=== PATIENT | male | born 2000 | race Caucasian/White ===

== ENCOUNTER 2022-09-01 01:37 | Inpatient (IN) | payer SELFPAY ==
[2022-09-01] VITALS (110 sets, daily range): BP systolic 114–172; BP diastolic 63–100; PULSE 0–116; RESP 0–28; TEMP 35.9–37.1; O2SAT 87–100; BMI 21.7
--- NOTE | 2022-09-01 01:41 | ECG_ITS ---
[facility] Test Date: 2022-09-01 Pat Name: Mart Lees Department: Room: Gender: Male Law Reporter: : 2000 Requested By: Kel Marquez Order Number: [id number] Luz Elena MD: Tip Valiente M.D. Measurements Intervals [place] Rate: 85 P: 78 TX: 152 QRS: 88 QRSD: 93 T: 48 QT: 349 QTc: 416 Interpretive Statements SINUS RHYTHM Compared to ECG 01/11/2017 18:08:34 Sinus tachycardia no longer present Electronically Signed On 09-01-2022 17:35:12 CDT by Tip Valiente M.D. [id number]
[2022-09-01 01:48] LABS: Basophils % 0.2 %; Eosinophils # 0.1 10^3/uL (0.0-0.8); Eosinophils % 0.8 %; Hematocrit 41.1 % (42.0-52.0); Hemoglobin 13.6 g/dL (11.7-16.6); Lymphocytes % 21.7 %; Mean Corpuscular HGB Conc 33.1 g/dL (30.0-36.0); Mean Corpuscular Hemoglobin 30.7 pg (28.0-34.0); Mean Corpuscular Volume 92.8 fl (80-94); Mean Platelet Volume 9.9 fL (7.4-10.4); Monocytes # 0.9 10^3/uL (0.2-0.9); Monocytes % 9.8 %; Neutrophils # 6.08 10^3/uL (1.8-7.7); Neutrophils % 67.3 %; Nucleated Red Blood Cells % 0 %; Platelet Count 309 10^3/cmm (130-400); Red Blood Count 4.43 10^6/uL (4.1-5.3); Red Cell Distribution Width 12.4 % (12.1-15.1)
--- NOTE | 2022-09-01 02:01 | ED_ITS ---
HPI - Overdose General: Chief Complaint: Overdose Stated Complaint: OD Time Seen by Provider: 09/01/22 01:38 Source: patient and EMS Mode of arrival: EMS Limitations: altered mental status History of Present Illness: 22-year-old male brought in by EMS tonight. Patient was at his family's house and supposedly took Xanax. Per EMS the family did state to but unsure how many he actually took. Patient here is clearly under the influence he is sedated he does not awaken answer some of my questions but is not answering them all appropriately no known suicide attempt he denies suicidality currently unknown if he has alcohol on board or other drugs Review of Systems General: Reports: ROS unobtainable due to mental status PFS ED PFSH: Medical History (Updated 09/01/22 @ 05:27 by Sarmad Chavez MD) No pertinent past medical history Surgical History (Updated 09/01/22 @ 05:27 by Sarmad Chavez MD) No pertinent past surgical history Social History (Updated 09/01/22 @ 05:28 by Sarmad Chavez MD) Smoking and tobacco status: current some day smoker Substance/Drug Use: never Caregiver/support person: Yes Household members: family Housing: House Physical Exam Const: COMMON NORMALS: negative for patient oriented x3 HENMT: COMMON NORMALS: normocephalic and atraumatic HEAD & SCALP: normocephalic and atraumatic Eye: COMMON NORMALS: Equal, round and reactive pupils present and EOMs intact bilaterally PUPIL: Yes Equal, round and reactive pupils present Neck/C-Spine: COMMON NORMALS: full ROM and supple Chest: COMMONS NORMALS: normal inspection of the chest and normal palpation of entire chest wall Resp: COMMON NORMALS: normal respiratory effort, No retractions, No use of accessory muscles and clear to auscultation bilaterally AUSCULTATION: clear to auscultation bilaterally Cardio: COMMON NORMALS: regular rate, regular rhythm and No murmurs present (Cardio) RATE: regular rate RHYTHM: regular rhythm GI: COMMON NORMALS: Normal to inspection, nondistended, normoactive bowel sounds present, Soft to palpation, non-tender and no masses PALPATION: Yes Soft to palpation Extremity: COMMON NORMALS: normal to inspection and full ROM Neuro: COMMON NORMALS: moves all extremities and no focal motor deficits; negative for patient oriented x3 Psych: COMMON NORMALS: mental status grossly normal and cooperative Skin: COMMON NORMALS: no rashes or lesions noted and no wounds GENERAL SKIN EXAM: no rashes or lesions noted Course Vital Signs: Vital signs: Vital Signs Temperature 98.8 F 09/01/22 01:40 Pulse Rate 66 09/01/22 05:24 Respiratory Rate 16 09/01/22 05:24 Blood Pressure 142/100 09/01/22 05:24 Pulse Oximetry 97 09/01/22 02:41 Oxygen Delivery Me thod Room Air 09/01/22 01:40 MDM - Overdose Medical Decision Making Patient presents here with a Xanax overdose history has been difficult from him as he is sedated from his Xanax per EMS family believes it was not intentional. I did observe him here for 4 hours he is still very somnolent difficult to arouse will admit to the ICU he has been protecting his airways vitals are normal. Medical Records I reviewed the patient's medical records. Lab Data I reviewed the patient's lab results. 09/01/22 01:42 09/01/22 01:42 Laboratory Results WBC 9.0 10^3/uL (4.0-10.0) 09/01/22 01:42 RBC 4.43 10^6/uL (4.1-5.3) 09/01/22 01:42 Hgb 13.6 g/dL (11.7-16.6) 09/01/22 01:42 Hct 41.1 % (42.0-52.0) L 09/01/22 01:42 MCV 92.8 fl (80-94) 09/01/22 01:42 MCH 30.7 pg (28.0-34.0) 09/01/22 01:42 MCHC 33.1 g/dL (30.0-36.0) 09/01/22 01:42 RDW 12.4 % (12.1-15.1) 09/01/22 01:42 Plt Count 309 10^3/cmm (130-400) 09/01/22 01:42 MPV 9.9 fL (7.4-10.4) 09/01/22 01:42 Neut % (Auto) 67.3 % 09/01/22 01:42 Lymph % (Auto) 21.7 % 09/01/22 01:42 [place] % (Auto) 9.8 % 09/01/22 01:42 Eos % (Auto) 0.8 % 09/01/22 01:42 Baso % (Auto) 0.2 % 09/01/22 01:42 Neut # (Auto) 6.08 10^3/uL (1.8-7.7) 09/01/22 01:42 Lymph # (Auto) 2.0 10^3/uL (0.8-4.8) 09/01/22 01:42 [place] # (Auto) 0.9 10^3/uL (0.2-0.9) 09/01/22 01:42 Eos # (Auto) 0.1 10^3/uL (0.0-0.8) 09/01/22 01:42 Baso # (Auto) 0.0 10^3/uL (0.0-0.1) 09/01/22 01:42 Nucleated RBC % (auto) 0 % 09/01/22 01:42 Nucleated RBCs # 0.0 /100WBC 09/01/22 01:42 Sodium 141 mmol/L (136-145) 09/01/22 01:42 Potassium 3.8 mmol/L (3.5-5.1) 09/01/22 01:42 Chloride 103 mmol/L (98-107) 09/01/22 01:42 Carbon Dioxide 25 mmol/L (22-29) 09/01/22 01:42 Anion Gap 16.8 (5-19) 09/01/22 01:42 BUN 10 mg/dL (6-20) 09/01/22 01:42 Creatinine 0.7 mg/dL (0.7-1.2) 09/01/22 01:42 GFR Calculation 141.0 mL/min (90-130) H 09/01/22 01:42 Glucose 106 mg/dL (65-115) 09/01/22 01:42 Calculated Osmolality 291 mOsm/kg (285-295) 09/01/22 01:42 Calcium 9.6 mg/dL (8.5-10.5) 09/01/22 01:42 Total Bilirubin 0.2 mg/dL (0.15-1.2) 09/01/22 01:42 AST 19 U/L (0-40) 09/01/22 01:42 ALT 23 U/L (0-41) 09/01/22 01:42 Alkaline Phosphatase 89 U/L (40-130) 09/01/22 01:42 Total Protein 7.1 g/dL (6.6-8.7) 09/01/22 01:42 Albumin 4.4 g/dL (3.5-5.2) 09/01/22 01:42 Globulin 2.7 g/dL (1.3-4.6) 09/01/22 01:42 Salicylates < 0.3 mg/dL (3-10) L 09/01/22 01:42 Urine Opiates Screen Negative ng/mL (Negative) 09/01/22 04:00 Acetaminophen < 5.0 ug/mL (10-30) L 09/01/22 01:42 Ur Barbiturates Screen Negative ng/mL (Negative) 09/01/22 04:00 Ur Phencyclidine Scrn Negative ng/mL (Negative) 09/01/22 04:00 Ur Amphetamines Screen Negative ng/mL (Negative) 09/01/22 04:00 U Benzodiazepines Scrn Positive ng/mL (Negative) H 09/01/22 04:00 Urine Cocaine Screen Negative ng/mL (Negative) 09/01/22 04:00 U Marijuana (THC) Screen Positive ng/mL (Negative) H 09/01/22 04:00 Ethyl Alcohol < 10 mg/dL (0-10) 09/01/22 01:42 EKG Data EKG 1: I personally reviewed and interpreted this EKG as follows: EKG interpretation date: 09/01/22 EKG interpretation time: 01:49 Interpretation: nsr hr [address] or t wave abnormalities qrs 93 qtc 391 Critical Care Time Critical Care Time: Critical Care Time: Yes Total Critical Care Time: 40 Attestation: The high probability of a clinically significant, sudden or life threatening deterioration of the patient's overdose system(s) required my full and direct attention, intervention and personal management. The critical care time is as shown. This time is in addition to time spent performing any reported procedures but includes the following: [x] Data and vital sign review and interpretation [x] Patient assessment, examination and intervention [x] Documentation [x] Medication orders and management Discharge Plan Discharge Patient Disposition: Admitted As Inpatient Clinical Impression: Drug overdose Condition: Stable Coding Level of Care Code ED Senior C Developer for Vee Pleitez
[2022-09-01 02:03] LABS: Alanine Aminotransferase 23 U/L (0-41); Albumin Level 4.4 g/dL (3.5-5.2); Alkaline Phosphatase 89 U/L (40-130); Anion Gap 16.8 (5-19); Aspartate Amino Transferase 19 U/L (0-40); Blood Urea Nitrogen 10 mg/dL (6-20); Calcium 9.6 mg/dL (8.5-10.5); Carbon Dioxide 25 mmol/L (22-29); Chloride 103 mmol/L (98-107); Globulin 2.7 g/dL (1.3-4.6); Glucose 106 mg/dL (65-115); Osmolality Calculated 291 mOsm/kg (285-295); Potassium 3.8 mmol/L (3.5-5.1); Sodium 141 mmol/L (136-145); Total Bilirubin 0.2 mg/dL (0.15-1.2); Total Protein 7.1 g/dL (6.6-8.7)
[2022-09-01 02:17] LABS: Acetaminophen < 5.0 ug/mL (10-30); Alcohol Level < 10 mg/dL (0-10); Salicylate < 0.3 mg/dL (3-10)
[2022-09-01 04:15] LABS: Amphetamines Screen Urine Negative (Negative); Barbiturates Screen Urine Negative (Negative); Benzodiazepines Screen Urine Positive (Negative); Cocaine Screen Urine Negative (Negative); Opiate Screen Urine Negative (Negative); PCP Screen Urine Negative (Negative); THC Screen Urine Positive (Negative)
--- NOTE | 2022-09-01 04:29 | PC.NURSE ---
RN into room to walk pt. Pt is unable to stand without falling backwards. RN informed MD. RN will walk pt again later when more alert. Pt resting in bed. Will continue to monitor.
--- NOTE | 2022-09-01 05:19 | P.HP_ITS ---
Providers/Chief Complaint Chief Complaint: OD History of Present Illness Mart Lees is a 22 year old male with no known past medical history brought into the ER via EMS today when family called as patient was unresponsive. As per family patient Xanax but not sure how many. Patient does not have any history of suicidal ideation or psychiatric illnesses. In the ER patient has remained on room air, maintaining his airway but has been difficult to arouse. Patient was used to wake up to answer clear questions but not appropriately and then doze off again. Blood work showed normal CBC with mildly low hematocrit of 41.1, normal CMP, drug screen positive for benzos and marijuana, negative Ethyl alcohol, salicylate and Tylenol levels. Review of Systems General: Reports: ROS unobtainable due to mental status PFSH Acute PFSH: Medical History (Updated 09/01/22 @ 05:27 by Sarmad Chavez MD) No pertinent past medical history Surgical History (Updated 09/01/22 @ 05:27 by Sarmad Chavez MD) No pertinent past surgical history Social History (Updated 09/01/22 @ 05:28 by Sarmad Chavez MD) Smoking and tobacco status: current some day smoker Substance/Drug Use: never Caregiver/support person: Yes Household members: family Housing: House Vitals/I&O/Wt Last Vital Signs Temp 98.8 F 09/01/22 01:40 Pulse 67 09/01/22 04:56 Resp 16 09/01/22 04:56 BP 137/69 09/01/22 04:56 Pulse Ox 97 09/01/22 02:41 O2 Del Method Room Air 09/01/22 01:40 Weight last 48 hrs Weight 72.575 kg Physical Exam Narrative: General: No acute distress, drowsy, sedated, waking up to verbal stimulus but not following simple commands HEENT: PERRLA, pupils bilaterally equal and reactive Chest: Normal vesicular breath sounds, no added sounds, equal good air entry bilaterally CVS: S1-S2 regular, no murmurs, no tachycardia, no gallops, no rubs Abdomen: Soft, nontender, no organomegaly, bowel sounds present Neuro: No focal deficits, no facial deformity, moving all limbs upon waking up, weakness 3/5 all over Data 09/01/22 01:42 09/01/22 01:42 A&P Assessment and plan (1) Drug overdose: Overdose to Xanax. Not sure of quantity. Not sure of suicidal ideation. Assess for suicidal ideation once patient more awake. Will consult psych if any concerns for suicidal ideations. Hold off on 96-hour hold for now. Seizure precaution, suicidal precautions. Check EKG. Currently showing heart rate running in 60s on telemetry. Continue telemetry monitoring. Maintaining airway. Keep saturation over 92%. Keep mean artery pressure 65. D5 NS at 75 cc/h. Keep NPO. Reassess swallow evaluation once more awake. Plan Famotidine for PUD prophylaxis Low VTE probability. SCDs for DVT prophylaxis. NPO. Admit to ICU. Attestations Medical Necessity Statement*: Admission for more than 2 midnights for monitoring, evaluation for Xanax overdose while suicidal ideation is ruled out Coding Level of Care Code Critical Care >/= 30 minutes Critical care time (in minutes): 50 The high probability of a clinically significant, sudden or life threatening deterioration, as referenced in this documentation, required my full and direct attention, intervention and personal management. The critical care time shown is in addition to time spent performing any reported separately billable procedures and includes the following: [x] Data and vital sign review and interpretation [x ] Patient assessment, examination and intervention [x] Medication orders and management [x] Patient/Family updates as able [x] Care Coordination and Documentation. Diagnoses Drug overdose T50.902U
--- NOTE | 2022-09-01 05:24 | PC.NURSE ---
RN into room multiple times to place pulse oximeter on finger. Pt has ripped 4 pulse oximeters off of finger during stay and repeatedly withdraws when RN tries to place pulse ox. Sitter at door observing pt. Door and curtain open so RN can observe pt from nurse's station nearby. Pt is currently not in any acute respiratory distress. RN will continue to monitor.
--- NOTE | 2022-09-01 05:26 | ECG_ITS ---
[facility] Test Date: 2022-09-01 Pat Name: Mart Lees Department: Room: ICU12 Gender: Male Head Of English: : 2000 Requested By: Sarmad Chavez Order Number: [id number] Laguna MD: Tip Valiente M.D. Measurements Intervals [place] Rate: 59 P: 59 OR: 148 QRS: 84 QRSD: 94 T: 64 QT: 390 QTc: 389 Interpretive Statements SINUS BRADYCARDIA WITH SINUS ARRHYTHMIA EARLY REPOLARIZATION [ST ELEVATION WITH NORMALLY INFLECTED T-WAVE] Compared to ECG 09/01/2022 01:49:04 Early repolarization now present Sinus rhythm no longer present Electronically Signed On 09-01-2022 17:32:52 CDT by Tip Valiente M.D. [id number]
--- NOTE | 2022-09-01 06:18 | PC.NURSE ---
RN called ICU for report at 0618. Per ICU charge entry specialist, pt room is empty but HS approved of pt being brought to them after shift change.
[2022-09-01] MEDS: dextrose 5%-sod chloride 0.9% 1,000 ML 75 ML IV ×2 (08:33→22:40)
[2022-09-01] MEDS: famotidine 20 mg/2 mL INJ IVP ×2 (08:34→21:19)
[2022-09-01 08:52] LABS: Thyroid Stimulating Hormone 0.51 uIU/mL (0.27-4.20)
--- NOTE | 2022-09-01 10:15 | PC.NURSE ---
REceived patient form ER staff at 0815. BP:154/87, HR is 72 but is variable and frequently bradycardic in the 50's, SPO2: 100% on room air. Temp 96.6 axillary. Patient was able to walk from ER stretcher to ICU bed, but he is very lethargic and requires 2 nurse assist. Patient has trouble staying awake during questioning and has mumbled speech, but is able to answer all orientation questions correctly.
--- NOTE | 2022-09-01 14:26 | PC.NURSE ---
Patient is now more alert, answering questions and able to hold a conversation, however he is still very lethargic.
[2022-09-01 16:30] LABS: Erythrocyte Sedimentation Rate 3 mm/hr (0-10)
[2022-09-01 17:07] LABS: Procalcitonin 0.03 ng/mL (0-0.5)
[2022-09-01 17:18] LABS: Hepatitis A Antibody IgM Non-Reactive (Nonreactive); Hepatitis B Core IgM Non-Reactive (Nonreactive); Hepatitis B Surface Antigen Non-Reactive (Nonreactive); Hepatitis C Virus Antibody Non-Reactive (Nonreactive)
[2022-09-01 18:53] LABS: HIV 1 & 2 Antibody Non-Reactive (Non-Reactiv); HIV 1 & 2 Antigen Non-Reactive (Non-Reactiv)
--- NOTE | 2022-09-01 18:57 | P.PN_ITS ---
Subjective Subjective: - Patient was examined multiple times throughout the morning in the evening with a family meeting in the evening -Patient was seen early in the morning he is quite drowsy, he falls back asleep he is alert to person, not place, not to time he keeps asking for his girlfriend -Patient was reexamined at noon time, he is alert to person, to place, to time, he follows commands, he does have some cognitive slowing, he does report that he took Xanax, he is not exactly sure how he got it, he is not exactly sure the doses of the medication but he took 3 pills, he denies any other drug use, does report marijuana use, denies feeling down depressed or sad, denies any suicidal ideation, denies any homicidal ideation, denies taking these pills as a suicide attempt, -He is reexamined early in the afternoon he is alert and awake, following command tells me that he is hungry, he would like to eat something, denies any headache, blurry vision, no nausea, no vomiting, no neck pain no sick stiffness, no fevers, no chills, no new rashes, denies any IV drug use, does report alcoholism, denies any cardiovascular history he does have a significant lesion on his left arm he tells me that it was a workplace 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 year ago it, again denies any IV drug abuse -He was reexamined in the evening with his family members at bedside, including his mom she does report that he used Xanax, he eventually found out that he took 3 tablets of the 2 mg of Ativan, denies any recent homicidal ideation, no suicidal ideation but does report he has been feeling down recently, family members were concerned about possible fentanyl use, but his urine toxicology screen was negative, no recent illness, no recent discord with his girlfriend, does use daily marijuana, no recent falls, no recent injuries, Vitals/I&O/Wt Last Vital Signs Temp 97.8 F 09/01/22 16:41 Pulse 67 09/01/22 14:00 Resp 20 H 09/01/22 13:10 BP 169/92 09/01/22 13:10 Pulse Ox 100 09/01/22 13:10 O2 Del Method Room Air 09/01/22 10:53 Weight last 48 hrs Weight 68.492 kg Weight 72.575 kg Physical Exam Const: COMMON NORMALS: no acute distress and patient oriented x3 Resp: COMMON NORMALS: normal respiratory effort, No retractions, No use of accessory muscles and clear to auscultation bilaterally AUSCULTATION: clear to auscultation bilaterally Cardio: COMMON NORMALS: regular rate, regular rhythm, S1 normal heart sound present and S2 normal heart sound present RATE: regular rate RHYTHM: regu lar rhythm HEART SOUNDS: S1 normal heart sound present and S2 normal heart sound present GI: COMMON NORMALS: Normal to inspection, nondistended, normoactive bowel sounds present and non-tender Extremity: COMMON NORMALS: no pedal edema Neuro: COMMON NORMALS: patient oriented x3 Data 09/01/22 01:42 09/01/22 01:42 A&P Assessment and plan (1) Drug overdose: Overdose to Xanax. 3 tablets of the 2 mg, denies any suicidal ideation, denies suicide attempt no homicidal ideation, denies seeing or hearing things are not there, denies feeling down depressed or sad Seizure precaution, Check EKG. Currently showing heart rate running in 60s on telemetry. Continue telemetry monitoring. Maintaining airway. Keep saturation over 92%. Keep mean artery pressure 65. D5 NS at 75 cc/h. Advance diet as tolerated Monitor electrolytes, continue IV fluids Plan Famotidine for PUD prophylaxis Low VTE probability. SCDs for DVT prophylaxis. NPO. Admit to ICU. Attestations Medical Necessity Statement*: Patient requires hospitalization for drug overdose Coding Level of Care Code 89124 High Time for a total of 60 minutes, includes reviewing past or interval history, examining/interviewing patient, placing orders, counseling patient/family/other support, updating patient/family/other support, discussing plan of care with staff, communicating with other healthcare providers, documenting encounter and coordinating care Diagnoses Drug overdose T50.906D
--- NOTE | 2022-09-01 19:17 | PC.NURSE ---
SHift SUmmary: uneventful shift. Patient has rested in bed throughout the day. Up to the bathroom occasionally. Mental status has greatly improved. Initially he was lethargic, mumbled speech, unable to hold head up and drooling, by end of shift he is awake, alert, and able to hold a conversation. Bradycardic episodes have decreased in frequency.
[2022-09-02] VITALS (56 sets, daily range): BP systolic 117–153; BP diastolic 71–107; PULSE 49–85; RESP 9–28; TEMP 36.6; O2SAT 95–100
[2022-09-02 04:08] LABS: Basophils % 0.4 %; Eosinophils # 0.1 10^3/uL (0.0-0.8); Eosinophils % 1.6 %; Hematocrit 42.3 % (42.0-52.0); Hemoglobin 13.9 g/dL (11.7-16.6); Lymphocytes # 2.3 10^3/uL (0.8-4.8); Lymphocytes % 32.9 %; Mean Corpuscular HGB Conc 32.9 g/dL (30.0-36.0); Mean Corpuscular Hemoglobin 30.4 pg (28.0-34.0); Mean Corpuscular Volume 92.6 fl (80-94); Mean Platelet Volume 9.7 fL (7.4-10.4); Monocytes # 0.7 10^3/uL (0.2-0.9); Monocytes % 10.2 %; Neutrophils # 3.86 10^3/uL (1.8-7.7); Neutrophils % 54.6 %; Nucleated Red Blood Cells % 0 %; Platelet Count 285 10^3/cmm (130-400); Red Blood Count 4.57 10^6/uL (4.1-5.3); Red Cell Distribution Width 12.7 % (12.1-15.1); White Blood Count 7.1 10^3/uL (4.0-10.0)
[2022-09-02 04:37] LABS: Alanine Aminotransferase 29 U/L (0-41); Albumin Level 4.2 g/dL (3.5-5.2); Alkaline Phosphatase 76 U/L (40-130); Aspartate Amino Transferase 22 U/L (0-40); Blood Urea Nitrogen 10 mg/dL (6-20); Calcium 9.3 mg/dL (8.5-10.5); Carbon Dioxide 24 mmol/L (22-29); Chloride 108 mmol/L (98-107); Creatinine Clr Calc Pharmacy 151.5087; Globulin 2.1 g/dL (1.3-4.6); Glomerular Filtration Rate 120.9 mL/min (90-130); Glucose 110 mg/dL (65-115); Magnesium 1.7 mg/dL (1.7-2.3); Osmolality Calculated 294 mOsm/kg (285-295); Sodium 142 mmol/L (136-145); Total Bilirubin 0.4 mg/dL (0.15-1.2); Total Protein 6.3 g/dL (6.6-8.7)
--- NOTE | 2022-09-02 05:46 | PC.NURSE ---
Patient has become more alert and awake throughout this shift. Family has remained at bedside overnight. Vitals remained stable with some bradycardia noted. Patient has been able to ambulate to the restroom. This nurse completed nurse swallow study and patient was able to pass. Diet tolerated per orders to regular diet. Patient has foods well.
--- NOTE | 2022-09-02 09:32 | PM.DCS ---
Discharge Providers Date of Admission: 09/01/22 07:59 Date of Discharge: September 02, 2022 Attending Provider at Admission: Sarmad Chavez MD Attending Provider at Discharge: Peter Boogie MD Diagnoses at Discharge Discharge Diagnosis (1) Drug overdose: Status: Acute Reason for Visit Reason for Visit: OD Hospital Course Hospital Course Mart Lees is a 22 year old male with no known past medical history brought into the ER via EMS today when family called as patient was unresponsive.? As per family patient Xanax but not sure how many.? Patient does not have any history of suicidal ideation or psychiatric illnesses.? In the ER patient has remained on room air, maintaining his airway but has been difficult to arouse.? Patient was used to wake up to answer clear questions but not appropriately and then doze off again. Blood work showed normal CBC with mildly low hematocrit of 41.1, normal CMP, drug screen positive for benzos and marijuana, negative Ethyl alcohol, salicylate and Tylenol levels. Patient was admitted to [facility] for Xanax overdose, through history from family members and patient, he was discerned that patient took 3 tablets of 2 mg of Xanax, totaling 8 mg. How he got the medications were unsure but it is possible he got it through his friends. Does admit to marijuana use. He denied any homicidal ideation and no suicidal ideation and denied suicide attempt, and denies feeling down depressed or sad. Patient was monitored as inpatient for 48 hours for Xanax overdose, overall he clinically improved, mentation improved, on discharge is alert oriented x4, following all commands, ambulating, eating and drinking. Patient was advised to abstain from all benzodiazepines, all narcotics. Discussed morbidity and mortality associate with benzodiazepine and narcotic overdose. His blood pressures were a bit on the higher end during his hospitalization, I would have him follow-up with a primary care provider for recheck blood pressure. Physical Exam Const: COMMON NORMALS: no acute distress and patient oriented x3 Resp: COMMON NORMALS: normal respiratory effort, No retractions, No use of accessory muscles and clear to auscultation bilaterally AUSCULTATION: clear to auscultation bilaterally Cardio: COMMON NORMALS: regular rate, regular rhythm, S1 normal heart sound present and S2 normal heart sound present RATE: regular rate RHYTHM: regular rhythm HEART SOUNDS: S1 normal heart sound present and S2 normal heart sound present GI: COMMON NORMALS: Normal to inspection, nondistended, normoactive bowel sounds present and non-tender Extremity: COMMON NORMALS: no pedal edema Neuro: COMMON NORMALS: patient oriented x3, CN's II-XII intact bilaterally, moves all extremities, no focal motor deficits and no sensory deficits noted Psych: COMMON NORMALS: mental status grossly normal Discharge Data Studies Completed and Pending Laboratory Results WBC 7.1 10^3/uL (4.0-10.0) 09/02/22 03:45 RBC 4.57 10^6/uL (4.1-5.3) 09/02/22 03:45 Hgb 13.9 g/dL (11.7-16.6) 09/02/22 03:45 Hct 42.3 % (42.0-52.0) 09/02/22 03:45 MCV 92.6 fl (80-94) 09/02/22 03:45 MCH 30.4 pg (28.0-34.0) 09/02/22 03:45 MCHC 32.9 g/dL (30.0-36.0) 09/02/22 03:45 RDW 12.7 % (12.1-15.1) 09/02/22 03:45 Plt Count 285 10^3/cmm (130-400) 09/02/22 03:45 MPV 9.7 fL (7.4-10.4) 09/02/22 03:45 Neut % (Auto) 54.6 % 09/02/22 03:45 Lymph % (Auto) 32.9 % 09/02/22 03:45 Cochran % (Auto) 10.2 % 09/02/22 03:45 Eos % (Auto) 1.6 % 09/02/22 03:45 Baso % (Auto) 0.4 % 09/02/22 03:45 Neut # (Auto) 3.86 10^3/uL (1.8-7.7) 09/02/22 03:45 Lymph # (Auto) 2.3 10^3/uL (0.8-4.8) 09/02/22 03:45 Cochran # (Auto) 0.7 10^3/uL (0.2-0.9) 09/02/22 03:45 Eos # (Auto) 0.1 10^3/uL (0.0-0.8) 09/02/22 03:45 Baso # (Auto) 0.0 10^3/uL (0.0-0.1) 09/02/22 03:45 Nucleated RBC % (auto) 0 % 09/02/22 03:45 Nucleated RBCs # 0.0 /100WBC 09/02/22 03:45 ESR 3 mm/hr (0-10) 09/01/22 16:17 Sodium 142 mmol/L (136-145) 09/02/22 03:45 Potassium 4.0 mmol/L (3.5-5.1) 09/02/22 03:45 Chloride 108 mmol/L (98-107) H 09/02/22 03:45 Carbon Dioxide 24 mmol/L (22-29) 09/02/22 03:45 Anion Gap 14.0 (5-19) 09/02/22 03:45 BUN 10 mg/dL (6-20) 09/02/22 03:45 Creatinine 0.8 mg/dL (0.7-1.2) 09/02/22 03:45 GFR Calculation 120.9 mL/min (90-130) 09/02/22 03:45 Glucose 110 mg/dL (65-115) 09/02/22 03:45 Calculated Osmolality 294 mOsm/kg (285-295) 09/02/22 03:45 Calcium 9.3 mg/dL (8.5-10.5) 09/02/22 03:45 Phosphorus 4.0 mg/dL (2.5-4.5) 09/02/22 03:45 Magnesium 1.7 mg/dL (1.7-2.3) 09/02/22 03:45 Total Bilirubin 0.4 mg/dL (0.15-1.2) 09/02/22 03:45 AST 22 U/L (0-40) 09/02/22 03:45 ALT 29 U/L (0-41) 09/02/22 03:45 Alkaline Phosphatase 76 U/L (40-130) 09/02/22 03:45 C-Reactive Protein 3.0 mg/L (0.0-4.9) 09/01/22 16:17 Total Protein 6.3 g/dL (6.6-8.7) L 09/02/22 03:45 Albumin 4.2 g/dL (3.5-5.2) 09/02/22 03:45 Globulin 2.1 g/dL (1.3-4.6) 09/02/22 03:45 Procalcitonin 0.03 ng/mL (0-0.5) 09/01/22 16:17 TSH 0.51 uIU/mL (0.27-4.20) 09/01/22 01:42 Salicylates < 0.3 mg/dL (3-10) L 09/01/22 01:42 Urine Opiates Screen Negative ng/mL (Negative) 09/01/22 04:00 Acetaminophen < 5.0 ug/mL (10-30) L 09/01/22 01:42 Ur Barbiturates Screen Negative ng/mL (Negative) 09/01/22 04:00 Ur Phencyclidine Scrn Negative ng/mL (Negative) 09/01/22 04:00 Ur Amphetamines Screen Negative ng/mL (Negative) 09/01/22 04:00 U Benzodiazepines Scrn Positive ng/mL (Negative) H 09/01/22 04:00 Urine Cocaine Screen Negative ng/mL (Negative) 09/01/22 04:00 U Marijuana (THC) Screen Positive ng/mL (Negative) H 09/01/22 04:00 Ethyl Alcohol < 10 mg/dL (0-10) 09/01/22 01:42 Hepatitis A IgM Ab Non-reactive (Nonreactive) 09/01/22 16:20 Hep Bs Antigen Non-reactive (Nonreactive) 09/01/22 16:20 Hep B Core IgM Ab Non-reactive (Nonreactive) 09/01/22 16:20 Hepatitis C Antibody Non-reactive (Nonreactive) 09/01/22 16:20 HIV 1&2 Ab & HIV 1 Ag Non-reactive (Non-Reactiv) 09/01/22 16:17 HIV 1&2 Antibody Non-reactive (Non-Reactiv) 09/01/22 16:17 Vitals Last Vital Signs Temp 98 F 09/02/22 04:25 Pulse 70 09/02/22 08:30 Resp 16 09/02/22 08:30 BP 123/81 09/02/22 08:30 Pulse Ox 98 09/02/22 08:30 O2 Del Method Room Air 09/01/22 19:00 Discharge Plan Discharge Patient Disposition: Home Condition: Stable Prescriptions: No Action Unable to Assess Rx Instructions: SEE NOTES Discharge Orders: Discharge Order (Routine); Ordered 09/02/22 Ordered By: Peter Boogie Referrals: Bobbi Delgadillo DO [Physician] - 09/11/22 10:00 am (Please arrive 15 min early to complete paperwork. ) Discharge Diet: Cardiac Discharge Activity: Resume usual activity Patient Instructions: Heart Healthy Diet, Medication Safety, Benzodiazepine Use Disorder (DC), Opioid Safety Activity Restrictions/Additional Instructions: -donot use any drugs -please see primary care about elevated blood presure Discharge Attestations Time Spent in Discharge Care*: greater than 30 min Quality Metrics Clinical Quality Measures [ No reported AMI, CVA or VTE this stay] Coding Level of Care Code Acute Code for Chg Fwd Diagnoses Drug overdose T50.901A
== END 2022-09-02 10:30 | disposition home or self-care (01) | DRG 918 ==
LOC: ER 05:30 → ICU 08:00
PROVIDERS: Admitting Provider Student in an Organized Health Care Education/Training Program; Emergency Provider Emergency Medicine; Visit Provider Family Medicine
DX: T42.4X1A Poisoning by benzodiazepines, accidental (unintentional), initial encounter (principal); F12.90 Cannabis use, unspecified, uncomplicated; F17.200 Nicotine dependence, unspecified, uncomplicated
CPT/HCPCS: 36415; 80053; 80074; 80306; 80307; 83735; 84100; 84145; 84443; 85025; 85651; 86140; 87806; 93005; 94664; 96376; 99285; J3490; J7042